=== PATIENT | male | born 1950 | race Caucasian/White ===

== ENCOUNTER 2020-05-13 15:54 | Emergency (ER) | payer OTHER, MEDICARE ==
[~2020-05-13] VITALS: Ht 180.3 cm; Wt 90.3 kg
[2020-05-13 15:54] VITALS: BP 134/80
[2020-05-13] MEDS ORDERED: ZPAK PO (17:28)
[2020-05-13] MEDS ORDERED: PROMETH-CODEIN 65 ML PO (17:28)
== END 2020-05-13 18:15 | disposition home or self-care (01) ==
LOC: ER 15:54
DX: U07.1 COVID-19 (principal); Z88.1 Allergy status to other antibiotic agents